=== PATIENT | female | born 1970 | race Caucasian/White ===

== ENCOUNTER 2016-10-05 15:49 | Emergency (ER) | payer OTHER ==
[2016-10-05 15:56] VITALS: BP 170/95
--- NOTE | 2016-10-05 16:09 | ERNOTE ---
Upper Extremity HPI - General Time Seen by Provider: 10/05/16 15:52 Source: patient Exam Limitations: no limitations - Immun/Allergies/Home Medications Immunizations: IMMUNIZATION HX Immunizations Up to Date Yes Allergies/Adverse Reactions: Allergies Allergy/AdvReac Type Severity Reaction Status Date / Time penicillin G Allergy Verified 10/05/16 15:57 Home Medications: HOME MEDICATIONS Albuterol Sulfate [Proventil Hfa] 6.7 gm IH Q4H 10/05/16 [Last Taken Unknown] Fluticasone/Salmeterol [Advair 250-50 Diskus] 1 puff IH BID 10/05/16 [Last Taken Unknown] Venlafaxine HCl [Effexor Xr] 300 mg PO DAILY 10/05/16 [Last Taken Unknown] - History of Present Illness Narrative: Here for fish hook stuck in the right ring finger. This happened prior to presentation to the emergency room [place] area. Patient tried moving it however it is stuck. The fishhook has a trudi at the end of it Review of Systems - Review of Systems Constitutional: Present: no symptoms reported EYE: Present: no symptoms reported ENT: Present: no symptoms reported Respiratory: Present: no symptoms reported Cardiology: Present: no symptoms reported Gastrointestinal/Abdominal: Present: no symptoms reported Genitourinary: Present: no symptoms reported Musculoskeletal: Present: See HPI - Patient's Past Medical History Patient History - Medical: Depression Patient History - Cardiac/Respiratory: Asthma Patient History - Cancer: No Hx of Cancer Patient History - Surgical Procedures: T & A Patient History - Other: None - Social History Living Situations: home Psych History: Hx of Depression Alcohol Use: none Drug Use: none - Immunizations Immunizations Up to Date: Yes Physical Exam - Physical Exam General Appearance: Present: wd/wn, alert, no apparent distress Respiratory: Present: no respiratory distress, normal breath sounds, no accessory muscle use, chest nontender, lungs clear Cardiovascular/Chest: Present: regular rate, rhythm, no murmur, normal peripheral pulses Extremity Exam: Present: other - there is a fishhook embedded in the pad of the ring finger distal aspect. ED Progress - Vital Signs Patient's Vital Signs:: I have reviewed the patient's vital signs. Vital Signs: Vital Signs 10/05/16 15:53 Temperature 36.8 C Pulse Rate 96 Respiratory 12 Rate Blood Pressure 170/95 O2 Sat by Pulse 99 Oximetry - Progress/Reassessment Chief Complaint: Hand Injury/Pain Plan - Plan Plan: A digital block was achieved and the patient's right ring finger with 2 mL of lidocaine and epi, following this a hemostat was used to gently remove the fishhook from the patient's right ring finger palmar aspect. Patient tolerated the procedure well and she is informing me that her tetanus shot is up-to-date Departure Clinical Impression: [place] injury to finger Qualifiers: Encounter type: initial encounter Laterality: right Qualified Code(s): S69.91XA - Unspecified injury of right wrist, hand and finger(s), initial encounter - Departure Disposition: Home self-care Condition: Good Instructions: Puncture Wound, [id number]
== END 2016-10-05 16:13 | disposition home or self-care (01) ==
LOC: ER 15:49
DX: S61.244A Puncture wound with foreign body of right ring finger without damage to nail, initial encounter (principal); X58.XXXA Exposure to other specified factors, initial encounter; Y93.89 Activity, other specified; Y92.838 Other recreation area as the place of occurrence of the external cause